=== PATIENT | male | born 1990 | race Caucasian/White ===

== ENCOUNTER 2016-08-06 01:13 | Inpatient (IN) | payer OTHER ==
[2016-08-06] MEDS ORDERED: NALOXONE 0.4 MG/ML 10 ML VIAL IVP PRN (01:21)
--- NOTE | 2016-08-06 01:23 | ED ---
General Adult HPI - General Stated complaint: overdose Time Seen by Provider: 08/06/16 01:15 Source: RN notes reviewed - History of Present Illness Initial comments: This is a 25-year-old male who presents to the emergency department after his friends dropped him off and stated that he was doing heroin and they gave him some nasal Narcan. Patient is still confused he doesn't remember what he was doing or where he was doing it however he does know his name and where he is at currently. Patient is very slow to respond to questions and again he is alert and oriented 2 only. Patient denies any pain currently. Patient denies any other drug use. After patient received Narcan and if he comes back to baseline I will discuss with him what was going on this evening and for problems he has. - Related Data Home Medications Medication Instructions Recorded Confirmed No Known Home Medications [No 08/06/16 08/06/16 Known Home Medications] Allergies Allergy/AdvReac Type Severity Reaction Status Date / Time No Known Allergies Allergy Verified 08/06/16 01:35 Review of Systems ROS Statement: Those systems with pertinent positive or pertinent negative responses have been documented in the HPI. ROS Other: All systems not noted in ROS Statement are negative. General Exam - General Exam Comments Initial Comments: GENERAL: Patient is well-developed and well-nourished. Patient is nontoxic and well- hydrated and is in no acute distress. ENT: Neck is soft and supple. No significant lymphadenopathy is noted. Oropharynx is clear. Moist mucous membranes. Neck has full range of motion without eliciting any pain. EYES: The sclera were anicteric and conjunctiva were pink and moist. Extraocular movements were intact and pupils were equal round and reactive to light. Eyelids were unremarkable. PULMONARY: Unlabored respirations. Good breath sounds bilaterally. No audible rales rhonchi or wheezing was noted. CARDIOVASCULAR: Patient's heart rate is irregular and rapid ABDOMEN: Soft and nontender with normal bowel sounds. No palpable organomegaly was noted. There is no palpable pulsatile mass. SKIN: Skin is clear with no lesions or rashes and otherwise unremarkable. NEUROLOGIC: Patient is alert and oriented 2. Cranial nerves II through XII are grossly intact. Motor and sensory are also intact. Normal speech, volume and content. Symmetrical smile. MUSCULOSKELETAL: Normal extremities with adequate strength and full range of motion. No lower extremity swelling or edema. No calf tenderness. LYMPHATICS: No significant lymphadenopathy is noted PSYCHIATRIC: Unable secondary to heroin Course Vital Signs 08/06/16 08/06/16 08/06/16 01:25 01:51 02:30 Temperature 96.8 F L 97.6 F Pulse Rate 144 H 146 H Pulse Rate [ 159 H [employer] Level Five ] Respiratory 20 22 Rate Blood Pressure 122/58 101/54 O2 Sat by Pulse 99 100 Oximetry Medical Decision Making - Medical Decision Making EKG looks like atrial fibrillation with a rapid ventricular response of 163. A minute QRS is 112 QTC to 52 QTC is 414. EKG shows T-wave inversions in leads V4 through V6 as well as inferiorly. After a little while the patient was alert and oriented 3 and he admitted to using heroin but he states he only uses heroin and drink a little alcohol. Patient denies any other drug use. I started the patient on Cardizem because his heart rate was between the 150s 160 beats a minute. I started the patient however the cousin was atrial fibrillation. Patient also had a high glucose psychiatric the patient some he will. I called Dr. Marie I admitted the patient and wrote admitting orders. - Lab Data Result diagrams: 08/06/16 01:25 08/06/16 01:25 Lab Results 08/06/16 08/06/16 08/06/16 Range/Units 01:25 01:25 01:25 WBC 8.9 (3.8-10.6) k/uL RBC 5.17 (4.30-5.90) m/uL Hgb 15.9 (13.0-17.5) gm/dL Hct 49.4 (39.0-53.0) % MCV 95.5 (80.0-100.0) fL MCH 30.8 (25.0-35.0) pg MCHC 32.3 (31.0-37.0) g/dL RDW 13.5 (11.5-15.5) % Plt Count 262 (150-450) k/uL Neutrophils % 61 % Lymphocytes % 33 % Monocytes % 2 % Eosinophils % 1 % Basophils % 1 % Neutrophils # 5.4 (1.3-7.7) k/uL Lymphocytes # 2.9 (1.0-4.8) k/uL Monocytes # 0.2 (0-1.0) k/uL Eosinophils # 0.1 (0-0.7) k/uL Basophils # 0.1 (0-0.2) k/uL PT (9.0-12.0) sec INR (<1.1) APTT (22.0-30.0) sec Sodium 143 (137-145) mmol/L Potassium 4.3 (3.5-5.1) mmol/L Chloride 101 (98-107) mmol/L Carbon Dioxide 23 (22-30) mmol/L Anion Gap 19 mmol/L BUN 10 (9-20) mg/dL Creatinine 1.80 H (0.66-1.25) mg/dL Est GFR (MDRD) Af Amer 55 (>60 ml/min/1.73 sqM) Est GFR (MDRD) Non-Af 45 (>60 ml/min/1.73 sqM) Glucose 450 H* (74-99) mg/dL Calcium 9.2 (8.4-10.2) mg/dL Magnesium 2.8 H (1.6-2.3) mg/dL Total Bilirubin 0.4 (0.2-1.3) mg/dL AST 26 (17-59) U/L ALT 38 (21-72) U/L Alkaline Phosphatase 67 (38-126) U/L Total Creatine Kinase 114 (55-170) U/L CK-MB (CK-2) 1.0 (0.0-2.4) ng/mL CK-MB (CK-2) Rel Index 0.9 Troponin I 0.016 (0.000-0.034) ng/mL Total Protein 6.6 (6.3-8.2) g/dL Albumin 4.3 (3.5-5.0) g/dL TSH 4.760 H (0.465-4.680) mIU/L Salicylates mg/dL Urine Opiates Screen (NotDetected) Ur Oxycodone Screen (NotDetected) Urine Methadone Screen (NotDetected) Ur Propoxyphene Screen (NotDetected) Acetaminophen ug/mL Ur Barbiturates Screen (NotDetected) U Tricyclic Antidepress (NotDetected) Ur Phencyclidine Scrn (NotDetected) Ur Amphetamines Screen (NotDetected) U Methamphetamines Scrn (NotDetected) U Benzodiazepines Scrn (NotDetected) Urine Cocaine Screen (NotDetected) U Marijuana (THC) Screen (NotDetected) 08/06/16 08/06/16 08/06/16 Range/Units 01:25 01:25 01:25 WBC (3.8-10.6) k/uL RBC (4.30-5.90) m/uL Hgb (13.0-17.5) gm/dL Hct (39.0-53.0) % MCV (80.0-100.0) fL MCH (25.0-35.0) pg MCHC (31.0-37.0) g/dL RDW (11.5-15.5) % Plt Count (150-450) k/uL Neutrophils % % Lymphocytes % % Monocytes % % Eosinophils % % Basophils % % Neutrophils # (1.3-7.7) k/uL Lymphocytes # (1.0-4.8) k/uL Monocytes # (0-1.0) k/uL Eosinophils # (0-0.7) k/uL Basophils # (0-0.2) k/uL PT 10.8 (9.0-12.0) sec INR 1.1 (<1.1) APTT 21.4 L (22.0-30.0) sec Sodium (137-145) mmol/L Potassium (3.5-5.1) mmol/L Chloride (98-107) mmol/L Carbon Dioxide (22-30) mmol/L Anion Gap mmol/L BUN (9-20) mg/dL Creatinine (0.66-1.25) mg/dL Est GFR (MDRD) Af Amer (>60 ml/min/1.73 sqM) Est GFR (MDRD) Non-Af (>60 ml/min/1.73 sqM) Glucose (74-99) mg/dL Calcium (8.4-10.2) mg/dL Magnesium (1.6-2.3) mg/dL Total Bilirubin (0.2-1.3) mg/dL AST (17-59) U/L ALT (21-72) U/L Alkaline Phosphatase (38-126) U/L Total Creatine Kinase (55-170) U/L CK-MB (CK-2) (0.0-2.4) ng/mL CK-MB (CK-2) Rel Index Troponin I (0.000-0.034) ng/mL Total Protein (6.3-8.2) g/dL Albumin (3.5-5.0) g/dL TSH (0.465-4.680) mIU/L Salicylates <1.0 mg/dL Urine Opiates Screen Detected H (NotDetected) Ur Oxycodone Screen Not Detected (NotDetected) Urine Methadone Screen Not Detected (NotDetected) Ur Propoxyphene Screen Not Detected (NotDetected) Acetaminophen <10.0 ug/mL Ur Barbiturates Screen Not Detected (NotDetected) U Tricyclic Antidepress Not Detected (NotDetected) Ur Phencyclidine Scrn Not Detected (NotDetected) Ur Amphetamines Screen Not Detected (NotDetected) U Methamphetamines Scrn Not Detected (NotDetected) U Benzodiazepines Scrn Not Detected (NotDetected) Urine Cocaine Screen Not Detected (NotDetected) U Marijuana (THC) Screen Not Detected (NotDetected) Disposition Clinical Impression: Hyperglycemia, Heroin abuse, Atrial fibrillation with rapid ventricular response Disposition: ADMITTED IP TO THIS HOSP Referrals: None,Stated [Primary Care Provider] - 1-2 days Time of Disposition: 03:07
[2016-08-06] MEDS ORDERED: SODIUM CHLORIDE 0.9% 1,000 ML IV STA (01:38)
[2016-08-06 01:59] LABS: Basophils # (A) 0.1 k/uL (0-0.2); Basophils % (A) 1 %; CH 30.5; CHCM 32.1; Eosinophils # (A) 0.1 k/uL (0-0.7); Eosinophils % (A) 1 %; HCT 49.4 % (39.0-53.0); HDW 2.82; HGB 15.9 gm/dL (13.0-17.5); Luc # (Auto) 0.16; Luc % (Auto) 2; Lymphocytes # (A) 2.9 k/uL (1.0-4.8); Lymphocytes % (A) 33 %; MCH 30.8 pg (25.0-35.0); MCHC 32.3 g/dL (31.0-37.0); MCV 95.5 fL (80.0-100.0); Mean Platelet Volume 7.1; Monocytes # (A) 0.2 k/uL (0-1.0); Monocytes % (A) 2 %; Neutrophils # (A) 5.4 k/uL (1.3-7.7); Neutrophils % (A) 61 %; RBC 5.17 m/uL (4.30-5.90); RDW 13.5 % (11.5-15.5); WBC 8.9 k/uL (3.8-10.6)
[2016-08-06 02:06] LABS: INR 1.1 (<1.1); Prothrombin Time 10.8 sec (9.0-12.0)
[2016-08-06 02:07] LABS: Calcium 9.2 mg/dL (8.4-10.2); Magnesium 2.8 mg/dL (1.6-2.3); Potassium 4.3 mmol/L (3.5-5.1); Total Bilirubin 0.4 mg/dL (0.2-1.3); Total Protein 6.6 g/dL (6.3-8.2)
[2016-08-06 02:16] LABS: Partial Thromboplastin Time 21.4 sec (22.0-30.0)
[2016-08-06 02:32] LABS: Troponin I 0.016 ng/mL (0.000-0.034)
[2016-08-06] MEDS ORDERED: DILTIAZEM 125 MG in SODIUM CHLORIDE 0.9% 100 ML IV ONE (02:33)
[2016-08-06] MEDS ORDERED: HEPARIN SODIUM,PORCINE 5,000 UNIT/ML 1 ML VIAL IV ONE (02:33)
[2016-08-06] MEDS ORDERED: INSULIN LISPRO (humaLOG) 300 UNIT/3 ML VIAL SQ ONE (02:34)
[2016-08-06 02:44] LABS: Acetaminophen <10.0 ug/mL; Salicylate <1.0 mg/dL
[2016-08-06] MEDS ORDERED: HEPARIN SODIUM,PORCINE/D5W PMX 25,000 UNIT in DEXTROSE/WATER 1 500ML.BAG IV SCH (02:45)
--- NOTE | 2016-08-06 02:54 | XR ---
INDICATION: Dysrhythmia COMPARISON: None. FINDINGS: AP and lateral views of the chest are obtained. Cardiomediastinal silhouette and pulmonary vascularity are normal. There is no airspace consolidation, pleural effusion, or pneumothorax. Regional skeleton is intact. IMPRESSION: No radiographic evidence of acute cardiopulmonary disease.
[2016-08-06] MEDS ORDERED: SODIUM CHLORIDE 0.9% 1,000 ML IV ONE (03:07)
[2016-08-06 03:49] LABS: Glucose,Whole Blood 57 mg/dL (75-99)
[2016-08-06 03:49] LABS: Glucose,Whole Blood 57 mg/dL (75-99)
[2016-08-06 04:10] LABS: Glucose,Whole Blood 64 mg/dL (75-99)
[2016-08-06 04:25] LABS: Glucose,Whole Blood 64 mg/dL (75-99)
[2016-08-06 04:55] LABS: Glucose,Whole Blood 58 mg/dL (75-99)
[2016-08-06 05:03] LABS: Glucose,Whole Blood 55 mg/dL (75-99)
[2016-08-06 05:20] LABS: Glucose,Whole Blood 83 mg/dL (75-99)
[2016-08-06 06:07] VITALS: BMI 23.1
[2016-08-06 06:26] LABS: Glucose,Whole Blood 72 mg/dL (75-99)
[2016-08-06] MEDS: INSULIN LISPRO (humaLOG) 300 UNIT/3 ML VIAL SQ SCH ×4 (07:19→11:44)
[2016-08-06 08:29] VITALS: RESP 16
[2016-08-06 08:45] LABS: Hemoglobin A1C 5.1 % (4.2-6.1)
[2016-08-06] MEDS ORDERED: ATENOLOL 25 MG TAB PO SCH (10:45)
--- NOTE | 2016-08-06 11:02 | CONS ---
DATE OF CONSULTATION: Von is a 25-year-old gentleman who is admitted to hospital with heroin overdose. He was found to be in atrial fibrillation with rapid ventricular rate for which he is admitted to hospital and Cardiology had been consulted. At the time of my evaluation this morning, he appears comfortable at rest, remains in A. fib with some ( ) poorly controlled ventricular rate, on 5 mg of IV Cardizem. He denies chest pain, difficulty in breathing, or palpitations. Labs show that the creatinine is elevated. Potassium is 4.3. Magnesium is 2.8. TSH is 4.7. Troponin is normal at 0.16. Past medical history is negative for hypertension, diabetes, dyslipidemia. MEDICATIONS: None. ALLERGIES: None. Family history is negative for premature coronary artery disease. Social history is negative for current smoking, EtOH abuse, or drug abuse. REVIEW OF SYSTEMS: HEENT is unremarkable. CARDIAC: As described above. RESPIRATORY: As described above. GI: Negative. GENITOURINARY: Negative. MUSCULOSKELETAL: Significant for arthritis. PSYCHOSOCIAL: Negative. ENDOCRINE: Negative. DERMATOLOGY: Negative. CONSTITUTIONAL: Negative. ONCOLOGICAL: Negative. The rest of the system review is not relevant. On exam, heart rate is 120 beats per minute, blood pressure is 110/53, respiratory rate is 18, O2 sat is 99%. There is no jugular venous distention. Chest exam reveals good air entry bilaterally. Heart exam reveals first and second heart sounds. No gallop. Abdomen is soft, nontender. Exam of the extremities did not reveal edema. Peripheral pulses are felt. Labs show that the one set of troponin is negative. EKG shows atrial fibrillation with rapid ventricular rate. ASSESSMENT: 1. Heroin overdose. 2. Atrial fibrillation with rapid ventricular rate, probably related to #1. PLAN: I will continue the patient on IV Cardizem, add Tenormin 25 mg daily, obtain a 2-D echo. If the echo shows normal LV function, we can stop the IV heparin and continue to work with rate control measures.
[2016-08-06 11:25] LABS: Glucose,Whole Blood 91 mg/dL (75-99)
--- NOTE | 2016-08-06 13:10 | CDI ---
In responding to this query, please exercise your independent professional judgment. The [facility] Coding Staff and Clinical Documentation Specialists appreciate your assistance in clarifying documentation, maintaining compliance with coding guidelines, accurately documenting patients condition and capturing severity of illness. The fact that a question is asked does not imply that any particular answer is desired or expected. Communication forms are a method of clarifying documentation and are not made part of the Legal Health Record. Thank you in advance for your clarification. Last Revision, December 2014 Amado Ramon [address] [place] [address] Documentation Clarification Form Date: 08/06/2016 1:04:00 PM From: Alexa Anderson CCS, CCDS Admit Date: 08/06/2016 3:07:00 AM Patient Name: Von Yang Visit Number: [id number] Discharge Date: 08/06/2016 Dr. Jerardo Cohen and/or Dr. Radha Butler, ANN MARIE Atrial fibrillation is documented in the ED note & the cardiology consult. History/Risk Factors: Heroin abuse Clinical Indicators: Patient presented to ED via friends with an overdose of Heroin, possibly given Narcan. EKG/telemetry: R 163 A Fib w/RVR, ST-T wave abnormality. Treatment: Telemetry, Cardizem drip, IV heparin, Insulin sc, IV Narcan, IV fluids. Consults: Cardiology In your professional opinion, can you please clarify the type of atrial fibrillation, if known? Chronic/Permanent Paroxysmal Persistent Other, please specify Unable to determine Please document in your progress notes and discharge summary in order to capture severity of illness and risk of mortality. Include clinical findings that support your diagnosis. FYI: Press F11 to launch patient chart Place X here if this finding has no clinical significance, is not applicable or if you are not able to provide any additional documentation. Thank You. CHEN
--- NOTE | 2016-08-06 13:37 | ECHOF ---
Referral Reason:a-fib with rvr MEASUREMENTS -------- HEIGHT: 193.0 cm WEIGHT: 86.2 kg BP: 109/53 RVIDd: 2.4 cm (< 3.3) IVSd: 1.0 cm (0.6 - 1.1) LVIDd: 3.9 cm (3.9 - 5.3) LVPWd: 1.1 cm (0.6 - 1.1) IVSs: 1.3 cm LVIDs: 2.8 cm LVPWs: 1.3 cm LA Diam: 3.1 cm (2.7 - 3.8) Ao Diam: 3.5 cm (2.0 - 3.7) AV Cusp: 2.4 cm (1.5 - 2.6) FINDINGS -------- Atrial fibrillation. This was a technically good study. The left ventricular size is normal. There is borderline concentric left ventricular hypertrophy. Overall left ventricular systolic function is low-normal with, an EF between 50 - 55 %. The right ventricle is normal in size and function. The left atrium is normal in size. The right atrium is normal in size. The aortic valve is trileaflet and appears structurally normal. There is trace to mild mitral regurgitation. Trace tricuspid regurgitation present. Trace/mild (physiologic) pulmonic regurgitation. The aortic root, ascending aorta and aortic arch are normal. The inferior vena cava is mildly dilated. The pericardium is normal. CONCLUSIONS -------- 1. Atrial fibrillation. 2. There is trace to mild mitral regurgitation. 3. Trace tricuspid regurgitation present. 4. Trace/mild (physiologic) pulmonic regurgitation. 5. The aortic root, ascending aorta and aortic arch are normal. 6. The inferior vena cava is mildly dilated. 7. The pericardium is normal. 8. This was a technically good study. 9. The left ventricular size is normal. 10. There is borderline concentric left ventricular hypertrophy. 11. Overall left ventricular systolic function is low-normal with, an EF between 50 - 55 %. 12. The right ventricle is normal in size and function. 13. The left atrium is normal in size. 14. The right atrium is normal in size. 15. The aortic valve is trileaflet and appears structurally normal. M[employer]TER [employer]MOKING PIPE: Tamiko Limon [facility]
--- NOTE | 2016-08-06 14:01 | P.PN ---
Progress Note - Text This is an addendum to the cardiology consultation dictated earlier today. Patient's second troponin came back at 0.475. The abnormality in troponin is likely secondary to the heroin use. The echo revealed a normal left ventricular systolic function. We will discontinue the heparin. Follow this patient with you now on an as-needed basis only, please don't hesitate to call with any questions. DNP note has been reviewed, I agree with a documented findings and plan of care. Patient was seen and examined.
[2016-08-06 15:29] VITALS: BP 105/68; PULSE 70; TEMP 97.6
--- NOTE | 2016-08-06 17:54 | P.HPIM ---
History of Present Illness H&P Date: 08/06/16 (dc summary as well) This is a 25-year-old male who presents to the emergency department after his friends dropped him off and stated that he was doing heroin and they gave him some nasal Narcan. pt was given iv narcan thereafter improved in the er pt was noted to have a fib with rvr and hence was admitted to the hospital titrated off the drip and started on oral atenolol doing well at this time no nausea, vomiting, diarrhea, headaches, blury vision, chest pain, palpitations Review of Systems All systems: negative (noted in hpi) Past Medical History Past Medical History: No Reported History History of Any Multi-Drug Resistant Organisms: None Reported Past Surgical History: No Surgical Hx Reported Past Anesthesia/Blood Transfusion Reactions: No Reported Reaction Past Psychological History: ADD/ADHD, Anxiety, Depression Smoking Status: Never smoker Past Alcohol Use History: Occasional Past Drug Use History: Cocaine, Heroin, Marijuana - Past Family History Father Family Medical History: Hypertension Mother Family Medical History: Hypertension Medications and Allergies Allergies Allergy/AdvReac Type Severity Reaction Status Date / Time No Known Allergies Allergy Verified 08/06/16 08:34 Physical Exam Vitals: Vital Signs Temp Pulse Pulse Resp BP BP Pulse Ox 08/06/16 15:28 97.6 F 70 16 105/68 99 08/06/16 11:55 97.0 F L 79 16 111/52 100 08/06/16 08:00 97.8 F 122 H 16 109/53 99 08/06/16 07:48 122 H 18 08/06/16 07:45 97 08/06/16 06:00 95 08/06/16 05:55 125 H 18 104/72 98 08/06/16 05:02 149 H 118/64 100 08/06/16 03:53 140 H 122/54 100 08/06/16 03:32 128 H 106/65 100 08/06/16 03:26 136 H 106/64 100 08/06/16 03:23 98.3 F 95 16 124/64 97 08/06/16 02:30 97.6 F 146 H 22 101/54 100 08/06/16 01:51 159 H 08/06/16 01:25 96.8 F L 144 H 20 122/58 99 Intake and Output 08/06/16 08/06/16 08/06/16 06:59 14:59 22:59 Intake Total 1200 2439.333 Output Total 400 Balance 1200 2038.333 Intake: Amount of Fluid Infused ( 1200 ml) Intake, IV Titration 2078.333 Amount Diltiazem 125 mg In 25 Sodium Chloride 0.9% 100 ml @ 5 MG/HR 5 mls/hr IV .Q24H ONE Rx#:[id number] Heparin Sodium,Porcine/ 154.333 D5w Pmx 25,000 unit In Dextrose/Water 1 500ml. bag @ 11.61 UNITS/KG/HR 20.01 mls/hr IV .Q24H RACQUEL Rx#:[id number] Sodium Chloride 0.9% 1, 900 000 ml @ 75 mls/hr IV . [id number] ONE Rx#:[id number] Sodium Chloride 0.9% 1, 1000 000 ml @ 999 mls/hr IV . Q1H1M STA Rx#:[id number] Oral 360 Output: Urine 400 Other: Voiding Method Toilet Toilet # Voids 1 Weight 86.183 kg - Constitutional General appearance: no acute distress - EENT Eyes: PERRLA - Neck Neck: normal ROM - Respiratory Respiratory: bilateral: CTA, negative: diminished, dullness, rales - Cardiovascular Rhythm: regular Heart sounds: normal: S1, S2 Abnormal Heart Sounds: no systolic murmur - Gastrointestinal General gastrointestinal: normal bowel sounds, no organomegaly, soft, no tenderness - Neurologic Neurologic: CNII-XII intact - Musculoskeletal Musculoskeletal: gait normal - Psychiatric Psychiatric: A&O x's 3, appropriate affect Results CBC & Chem 7: 08/06/16 01:25 08/06/16 01:25 Labs: Abnormal Lab Results - Last 24 Hours (Table) 08/06/16 08/06/16 08/06/16 Range/Units 01:25 01:25 01:25 APTT 21.4 L (22.0-30.0) sec Creatinine 1.80 H (0.66-1.25) mg/dL Glucose 450 H* (74-99) mg/dL POC Glucose (mg/dL) (75-99) mg/dL Magnesium 2.8 H (1.6-2.3) mg/dL Troponin I (0.000-0.034) ng/mL TSH 4.760 H (0.465-4.680) mIU/L Urine Opiates Screen Detected H (NotDetected) 08/06/16 08/06/16 08/06/16 Range/Units 03:45 03:48 04:06 APTT (22.0-30.0) sec Creatinine (0.66-1.25) mg/dL Glucose (74-99) mg/dL POC Glucose (mg/dL) 57 L 57 L 64 L (75-99) mg/dL Magnesium (1.6-2.3) mg/dL Troponin I (0.000-0.034) ng/mL TSH (0.465-4.680) mIU/L Urine Opiates Screen (NotDetected) 08/06/16 08/06/16 08/06/16 Range/Units 04:23 04:53 04:56 APTT (22.0-30.0) sec Creatinine (0.66-1.25) mg/dL Glucose (74-99) mg/dL POC Glucose (mg/dL) 64 L 58 L 55 L (75-99) mg/dL Magnesium (1.6-2.3) mg/dL Troponin I (0.000-0.034) ng/mL TSH (0.465-4.680) mIU/L Urine Opiates Screen (NotDetected) 08/06/16 08/06/16 Range/Units 06:24 11:23 APTT (22.0-30.0) sec Creatinine (0.66-1.25) mg/dL Glucose (74-99) mg/dL POC Glucose (mg/dL) 72 L (75-99) mg/dL Magnesium (1.6-2.3) mg/dL Troponin I 0.475 H* (0.000-0.034) ng/mL TSH (0.465-4.680) mIU/L Urine Opiates Screen (NotDetected) Thrombosis Risk Factor Assmnt - Choose All That Apply Any of the Below Risk Factors Present?: No Other Risk Factors: No Other congenital or acquired thrombophilia - If yes, enter type in comment: No Thrombosis Risk Factor Assessment Level: Very Low Risk Assessment and Plan Plan: 1. Toxic encephalopathy 2. new onset a fib due to use of narcotics Plan echo was reviewed. preserved ef discussed with the pt to continue atenelol for 5 days follow up with PCP on tuesday Discussed substance use cessation. Aspirin 81mg is recommended
--- NOTE | 2016-08-09 15:34 | P.PN ---
Progress Note - Text This is an addendum to the cardiology progress note dictated. Patient has paroxysmal atrial fibrillation and upon discharge was a normal sinus rhythm. DNP note has been reviewed, I agree with a documented findings and plan of care. Patient was seen and examined.
== END 2016-08-06 16:02 | disposition home or self-care (01) | DRG 917 ==
LOC: EC 01:13 → 6SEL 03:07
PROVIDERS: ADMIT Hospitalist; ATTEND Hospitalist
DX: T40.1X1A Poisoning by heroin, accidental (unintentional), initial encounter (principal); G92 Toxic encephalopathy; I48.0 Paroxysmal atrial fibrillation; F19.90 Other psychoactive substance use, unspecified, uncomplicated; R73.9 Hyperglycemia, unspecified; F11.10 Opioid abuse, uncomplicated; F41.9 Anxiety disorder, unspecified; F90.9 Attention-deficit hyperactivity disorder, unspecified type; F32.9 Major depressive disorder, single episode, unspecified; R74.8 Abnormal levels of other serum enzymes; Z71.51 Drug abuse counseling and surveillance of drug abuser; Z82.49 Family history of ischemic heart disease and other diseases of the circulatory system; Z72.89 Other problems related to lifestyle
CPT/HCPCS: 36415; 71020; 80053; 80306; 82550; 82553; 83036; 83520; 83735; 84439; 84443; 84484; 85025; 85610; 85730; 93005; 93306; 96361; 96365; 96366; 96368; 96375; 96376; 99285